=== PATIENT | female | born 1970 | race American Indian/Alaskan Native ===

== ENCOUNTER 2021-06-07 06:03 | Day surgery (SDC) | payer BC ==
[2021-06-01 13:18] LABS: Hematocrit 38.2 % (30.3-42.9); Hemoglobin 13.2 gm/dl (10.1-14.3); Mean Corpuscular HGB Conc 35 % (30-34); Mean Corpuscular Volume 80 fl (79-97); Platelet Count 291 K/mm3 (140-440); Red Cell Distribution Width 15.4 % (13.2-15.2)
[~2021-06-07 06:03] MED LIST: LACTATED RINGERS 1,000 ML IV SCH; MIDAZOLAM 2 MG/2 ML INJ IV NR
[2021-06-07] MEDS ORDERED: BACTERIOSTATIC SODIUM CHLORIDE 0.9% 30 ML VIAL INFILTRATI ONE (06:37)
--- NOTE | 2021-06-07 07:19 | Anesthesia Consultation ---
Anesthesia Consult and Med Hx Date of service: 06/07/21 - Airway Anesthetic Teeth Evaluation: Good ROM Head & Neck: Adequate Mental/Hyoid Distance: Adequate Mallampati Class: Class II Intubation Access Assessment: Probably Good - Pre-Operative Health Status ASA Pre-Surgery Classification: ASA2 Proposed Anesthetic Plan: General - Cardiovascular System Hx Hypertension: Yes (BP is elevated on the DOS) - Central Nervous System Hx Psychiatric Problems: No - Hematic Hx Anemia: Yes - Other Systems Hx Alcohol Use: Yes (Occas) Hx Cancer: No - Additional Comments Anesthesia Medical History Comments: given hydralizine preop
--- NOTE | 2021-06-07 07:19 | Anesthesia Day of Surgery ---
Anesthesia Day of Surgery - Day of Surgery Patient Examined: Yes Patient H&P Reviewed: Yes Patient is NPO: Yes
[2021-06-07] MEDS ORDERED: ceFAZolin/Water 2 GM/20 ML 2 GM/20 ML SYRINGE IV ONE (07:39)
--- NOTE | 2021-06-07 07:39 | Short Stay Summary ---
Short Stay Documentation Date of service: 06/07/21 - History Principal diagnosis: DUB H&P: obtained from office Past Medical History: hypertension Past Surgical History: Other (tubal ligation) - Allergies and Medications Current Medications: Allergies No Known Allergies Allergy (Unverified 05/31/21 16:26) Home Medications Medication Instructions Recorded Confirmed Last Taken Type Enalapril Maleate [Vasotec] 20 mg PO DAILY 05/31/21 06/07/21 06/06/21 History amLODIPine [Norvasc] 5 mg PO DAILY 05/31/21 06/07/21 06/07/21 05:00 History Active Medications Hydralazine HCl (Hydralazine 20 Mg/1 Ml Inj) 10 mg IV ONCE ONE Stop: 06/07/21 07:17 Lactated Ringer's (Lactated Ringers) 1,000 mls @ 100 mls/hr IV DIRECT JAMES Stop: 06/07/21 23:59 Last Admin: 06/07/21 06:55 Dose: 100 mls/hr Documented by: Midazolam HCl (Midazolam 2 Mg/2 Ml Inj) 2 mg IV PREOP NR Stop: 06/07/21 23:00 - Physical exam General appearance: no acute distress Lungs: Clear to auscultation, Normal air movement Breasts: deferred Heart: Regular rate, Normal S1, Normal S2 Gastrointestinal: normal, normoactive bowel sounds Female Genitourinary: normal Rectal Exam: deferred Extremities: No edema - Brief post op/procedure progress note Date of procedure: 06/07/21 Pre-op diagnosis: DUB Post-op diagnosis: same Procedure: Endometrial ablation using NovaSure Anesthesia: MAC Findings: Normal uterine cavity no masses Surgeon: MICHAEL YAO Estimated blood loss: minimal Pathology: none Condition: stable - Hospital course Hospital course: Unremarkable - Disposition Condition at discharge: Good Disposition: 01 HOME / SELF CARE / HOMELESS Short Stay Discharge Plan Activity: advance as tolerated Weight Bearing Status: Weight Bear as Tolerated Diet: regular Follow up with: MICHAEL YAO MD [Staff Physician] - 14 Days Prescriptions: Ibuprofen [Motrin] 800 mg PO Q8HR PRN #30 tablet PRN Reason: Pain, Mild (1-3) HYDROcodone/APAP 5-325 [[place] 5/325] 1 each PO Q6HR PRN #15 tablet PRN Reason: Pain
[2021-06-07] MEDS ORDERED: HYDROmorphone 1 MG/1 ML INJ ONE (07:42)
[2021-06-07] MEDS ORDERED: propofoL 200 MG/20 ML VIAL IV ONE (07:43)
[2021-06-07] MEDS ORDERED: LIDOCAINE MPF (2%) 20 MG/1 ML VIAL 5 ML ONE (07:43)
[2021-06-07] MEDS ORDERED: ceFAZolin/Water 2 GM/20 ML 2 GM/20 ML SYRINGE IV NR (08:00)
[2021-06-07] MEDS ORDERED: hydrALAZINE 20 MG/1 ML INJ IV SCH (08:00)
[2021-06-07] MEDS ORDERED: KETOROLAC 30 MG/1 ML INJ ONE (08:25)
[2021-06-07] MEDS ORDERED: dexAMETHasone 20 MG/5 ML VIAL ONE (08:25)
[2021-06-07] MEDS ORDERED: ONDANSETRON 4 MG/2 ML INJ IV PRN (09:00)
[2021-06-07] MEDS ORDERED: HYDROmorphone 1 MG/1 ML INJ IV PRN (09:00)
[2021-06-07] MEDS ORDERED: HYDROcodone/ACETAMINOPHEN 5-325 MG TAB PO PRN (09:00)
--- NOTE | 2021-06-07 10:29 | Operative Report ---
Operative Report Operative Report: Preop diagnosis: Abnormal uterine bleeding and perimenopausal. Postop diagnosis: Same Procedure: NovaSure endometrial ablation with D&C hysteroscopy Surgeon: Dr. Margret Kam EBL: Minimal IV fluids: 1000 cc LR Urine output: 200 cc clear at the beginning of the procedure Specimens: None Complications: None Procedure: Patient sent to the OR with IV running in place. She is identified as her self. She is given adequate anesthesia and then prepped and draped in normal sterile fashion. She was placed in dorsolithotomy position. Attention is first turned to the patient's bladder, which was drained approximately 100 cc of clear urine. A speculum was then placed to the patient's vagina. The cervix was visualized and grasped with single-tooth tenaculum. She was gently dilated and a very gentle hysteroscopy was performed which revealed a normal endometrial cavity with no obvious lesions. She then had a gentle curettage which revealed only scant tissue. Following this the NovaSure ablation was initiated at the following settings; length 6.5, with 4.3, wattage 159, for a total burn time of 49 seconds. Once the procedure was completed the device was removed. A second look hysteroscopy was done which revealed adequate burn throughout the cavity. Patient tolerated procedure well. She was taken to recovery in stable condition.
[2021-06-07 11:09] VITALS: BP 142/90
--- NOTE | 2021-06-07 13:09 | Post Anesthesia Evaluation ---
- Post Anesthesia Evaluation Patient Participated: Yes Airway Patent: Yes Stable Respiratory Function: Yes Nausea/Vomiting: No Temp > 96.8F: Yes Pain Manageable: Yes Adequeate Hydration: Yes Anesthesia Complications: No
== END 2021-06-07 11:00 | disposition home or self-care (01) ==
LOC: OR 06:03
PROVIDERS: ATTEND Obstetrics & Gynecology
DX: N93.8 Other specified abnormal uterine and vaginal bleeding (principal); D50.0 Iron deficiency anemia secondary to blood loss (chronic); I10 Essential (primary) hypertension; Z79.899 Other long term (current) drug therapy; Z98.890 Other specified postprocedural states; Z72.89 Other problems related to lifestyle
CPT/HCPCS: 36415; 58563; 84703; 85027; J0360; J0690; J1100; J1170; J1885; J2250; J2405; J2704; J7120